=== PATIENT | male | born 1970 | race Caucasian/White ===

== ENCOUNTER 2017-11-14 12:47 | Emergency (ER) | payer SELFPAY ==
[~2017-11-14] VITALS: Ht 180.3 cm; Wt 113.4 kg
[2017-11-14 14:39] VITALS: BP 147/97
[2017-11-14] MEDS ORDERED: HYDROcodone-ACET 10/325MG TAB PO ONE (15:15)
[2017-11-14] MEDS ORDERED: KETOROLAC TROMETH 60MG/2ML VIAL IM ONE (15:15)
== END 2017-11-14 15:52 | disposition home or self-care (01) ==
LOC: EDBD 12:47 → ER 12:47
DX: M25.561 Pain in right knee (principal)
CPT/HCPCS: 73562; 96372; 99284; J1885